=== PATIENT | female | born 1975 | race Caucasian/White ===

== ENCOUNTER 2016-03-26 19:47 | Inpatient (IN) | payer OTHER ==
[~2016-03-26] VITALS: Ht 180.3 cm; Wt 166.4 kg
[~2016-03-26 19:47] MED LIST: ALDACTONE25 MG PO; AMITRIPTYLINE150 MG PO; ATORVASTATIN CA80 MG PO; BENADRYL50 MG PO; BENTYL10 MG PO; BUMEX2 MG PO; CENTRUM COMPLE1 EACH PO; CIPRO500 MG PO; Colchicine,Colcrys PO; DEMADEX100 MG PO; DEMADEX20 MG PO; DILAUDID8 MG PO; DOCUSATE SODIU100 MG PO; DOXYCYCLINE HY100 M3 PO; FLEXERIL10 MG PO; FURO100I IV; GABAPENTIN800 MG PO; HUMULIN R500 UNITS/ SC; HUMULIN R500 UNITS/ SQ; INSPRA50 MG PO; K-DUR20 MEQ PO; K-SOL40 MEQ/15 PO; KLOR-CON M2020 MEQ PO; LANTUS 3 M100 UNITS1 SC; LASIX100 MG/10 ML IV; MAGNESIUM400 M1 PO; METFORMIN HCL500 MG PO; METOLAZONE2.5 MG PO; METOLAZONE5 MG PO; NAPROXEN500 MG PO; NOVOLOG 10100 UNITS/ SC; NOVOLOG PE100 UNITS/ SC; NYSTATIN15 GM TP; OXYCONTIN60 MG PO; OXYCONTIN80 MG PO; PERCOCET 5/31 TABLET PO; PROTONIX20 MG PO; PROTONIX40 MG PO; REGLAN10 MG PO; REQUIP1 MG PO; TORSEMIDE100 MG PO; TRAZODONE HCL50 MG PO; TYLENOL EXTRA500 MG PO; TYLENOL REGULA325 MG PO; WELLBUTRIN XL300 MG PO; ZOFRAN8 MG PO
[2016-03-26 22:24] LABS: BASE EXCESS 35.1 mEq/L (-3 to +3); BICARBONATE 62.4 mEq/L (22-26); CARBOXY HGB 3.1 % (0-5); PO2 77 mm Hg (80-100)
[2016-03-26 22:25] LABS: COMMENTS - BLOOD GASES C+; O2 FLOW 4 L/MIN; PCO2 65 mm Hg (35-45); SITE LR; TOTAL RESP RATE 25 resp/min; pH 7.59 (7.35-7.45)
[2016-03-27 00:12] LABS: HEMATOCRIT 37.2 % (36.0-46.0); MCH 27.1 PG (29.0-34.0); MCHC 32.5 G/DL (30.0-36.0); MCV 83.2 FL (83-99); MEAN PLAT.VOLUME 9.1 uM^3 (9.5-12.4); RBC DIS.WIDTH-CV 16.5 % (11.8-14.6); RBC DIS.WIDTH-SD 49.4 % (39-53); RED BLOOD COUNT 4.47 M/uL (3.80-5.20)
[2016-03-27 00:16] LABS: PLATELET COUNT 367 K/uL (156-360); WHITE BLOOD COUNT 10.8 K/uL (4.1-10.2)
[2016-03-27 00:27] LABS: CHLORIDE 67 mEq/L (99-109); SODIUM 130 mEq/L (136-147)
[2016-03-27 00:30] LABS: GLUCOSE 74 mg/dL (70-99)
[2016-03-27 00:32] LABS: TOTAL BILIRUBIN 0.4 mg/dL (0.0-1.0)
[2016-03-27 00:33] LABS: ALKALINE PHOSPHATASE 124 IU/L (3-129); GFR ESTIMATE (CALCULATED) > 59 mL/min/
[2016-03-27 00:36] LABS: UREA NITROGEN (BUN) 46 mg/dL (9-23)
[2016-03-27 00:37] LABS: TROP-I INTERPRETATION NEGATIVE; TROPONIN-I < 0.01 ng/mL (0.0-0.30)
[2016-03-27 00:41] LABS: ANION GAP 16 MEQ/L (2-14)
[2016-03-27 00:42] LABS: CARBON DIOXIDE (BICARBONATE) > 46.0 mEq/L (20-31)
[2016-03-27 01:09] LABS: ADD MIUA? YES; BILIRUBIN NEGATIVE; BLOOD SMALL; COLOR YELLOW ((YELLOW)); GLUCOSE (STRIP) 250; KETONES NEGATIVE; LEUKOCYTES LARGE; NITRITE NEGATIVE; PROTEIN (STRIP) 30; SPECIFIC GRAVITY 1.016 (1.000-1.030); UROBILINOGEN 0.2 MG/DL (0.2-1.0)
[2016-03-27] MEDS ORDERED: BENADRYL ALLERG25 MG PO (01:24)
[2016-03-27] MEDS ORDERED: KEFLEX500 MG PO (01:24)
[2016-03-27 01:26] LABS: EOSINOPHIL (%) 1.6 % (0-5); EOSINOPHIL COUNT 0.2 K/uL (0-0.3); HEMATOLOGY COMMENT 1 REV; IMMATURE GRANULOCYTE (%) 0.2 % (0.0-0.7); IMMATURE GRANULOCYTE COUNT 0.2 K/uL; MONOCYTE (%) 10.6 % (3-12); MONOCYTE COUNT 1.1 K/uL (0-0.8); NEUTROPHIL (%) 59.7 % (45-76); NEUTROPHIL COUNT 6.4 K/uL (1.8-6.4); USER ID SLU
[2016-03-27 01:41] LABS: BACTERIA RARE; EPITHELIAL CELLS RARE; MUCUS NONE SEEN; RED BLOOD CELLS 0-5 /HPF (0-5); UCUL ADDED? YES; WHITE BLOOD CELLS TNTC /HPF (0-5)
[2016-03-27 01:42] LABS: CASTS NONE SEEN /LPF; CRYSTALS NONE SEEN
[2016-03-27 06:10] VITALS: BP 118/58
[2016-03-27 09:55] LABS: ANION GAP ND MEQ/L (2-14); CARBON DIOXIDE (BICARBONATE) > 40.0 MEQ/L (20-31); CHLORIDE 73 MEQ/L (99-109); GFR ESTIMATE (CALCULATED) > 59 mL/min/; GLUCOSE 355 mg/dL (70-99); POTASSIUM 3.4 MEQ/L (3.7-5.4); SAMPLE HEMOLYSIS CHECK 0; SAMPLE ICTERIC CHECK 0; SAMPLE LIPEMIA CHECK 0; SODIUM 131 MEQ/L (136-147); UREA NITROGEN (BUN) 36 mg/dL (9-23); URIC ACID 11.3 mg/dL (3.1-9.2)
[2016-03-27 09:56] LABS: MAGNESIUM 2.5 mg/dl (1.3-2.7)
[2016-03-27 09:59] LABS: TROP-I INTERPRETATION NEGATIVE; TROPONIN-I < 0.01 ng/mL (0.0-0.30)
[2016-03-27 12:45] VITALS: BP 129/69
[2016-03-27 12:54] LABS: TROP-I INTERPRETATION NEGATIVE; TROPONIN-I < 0.01 ng/mL (0.0-0.30)
[2016-03-27 16:04] VITALS: BP 129/72
[2016-03-27 19:04] LABS: ANION GAP ND MEQ/L (2-14); CHLORIDE 71 MEQ/L (99-109); GFR ESTIMATE (CALCULATED) > 59 mL/min/; GLUCOSE 388 mg/dL (70-99); SAMPLE HEMOLYSIS CHECK 0; SAMPLE ICTERIC CHECK 0; SAMPLE LIPEMIA CHECK 0; SODIUM 125 MEQ/L (136-147); UREA NITROGEN (BUN) 31 mg/dL (9-23)
[2016-03-27 19:08] LABS: CARBON DIOXIDE (BICARBONATE) > 40.0 MEQ/L (20-31)
[2016-03-27 19:48] VITALS: BP 117/51
[2016-03-27 21:08] LABS: HEMATOCRIT 34.2 % (36.0-46.0); MCH 27.3 PG (29.0-34.0); MCHC 31.6 G/DL (30.0-36.0); MCV 86.6 FL (83-99); MEAN PLAT.VOLUME 9.7 uM^3 (9.5-12.4); PLATELET COUNT 313 K/uL (156-360); RBC DIS.WIDTH-SD 53.4 % (39-53); RED BLOOD COUNT 3.95 M/uL (3.80-5.20); WHITE BLOOD COUNT 9.2 K/uL (4.1-10.2)
[2016-03-27 21:12] LABS: ANION GAP ND MEQ/L (2-14); CHLORIDE 76 MEQ/L (99-109); GFR ESTIMATE (CALCULATED) > 59 mL/min/; GLUCOSE 333 mg/dL (70-99); POTASSIUM 3.1 MEQ/L (3.7-5.4); SAMPLE HEMOLYSIS CHECK 0; SAMPLE ICTERIC CHECK 0; SAMPLE LIPEMIA CHECK 0; SODIUM 127 MEQ/L (136-147); UREA NITROGEN (BUN) 30 mg/dL (9-23)
[2016-03-27 21:13] LABS: CARBON DIOXIDE (BICARBONATE) > 40.0 MEQ/L (20-31); EOSINOPHIL (%) 1.5 % (0-5); EOSINOPHIL COUNT 0.1 K/uL (0-0.3); IMMATURE GRANULOCYTE (%) 0.2 % (0.0-0.7); MONOCYTE (%) 6.8 % (3-12); MONOCYTE COUNT 0.6 K/uL (0-0.8); NEUTROPHIL (%) 69.1 % (45-76); NEUTROPHIL COUNT 6.3 K/uL (1.8-6.4)
[2016-03-27 21:53] LABS: GLUCOSE 321 mg/dL (70-99)
[2016-03-27 23:18] VITALS: BP 120/55
[2016-03-28 03:09] VITALS: BP 140/58
[2016-03-28 04:41] LABS: HEMATOCRIT 36.4 % (36.0-46.0); MCH 27.4 PG (29.0-34.0); MCHC 32.4 G/DL (30.0-36.0); MCV 84.7 FL (83-99); MEAN PLAT.VOLUME 9.1 uM^3 (9.5-12.4); PLATELET COUNT 321 K/uL (156-360); RBC DIS.WIDTH-SD 51.5 % (39-53); WHITE BLOOD COUNT 7.8 K/uL (4.1-10.2)
[2016-03-28 04:44] LABS: EOSINOPHIL (%) 2.6 % (0-5); EOSINOPHIL COUNT 0.2 K/uL (0-0.3); IMMATURE GRANULOCYTE (%) 0.3 % (0.0-0.7); IMMATURE GRANULOCYTE COUNT 0.2 K/uL; LYMPHOCYTE COUNT 2.2 K/uL (1.0-2.8); MONOCYTE (%) 9.6 % (3-12); MONOCYTE COUNT 0.8 K/uL (0-0.8); NEUTROPHIL (%) 59.1 % (45-76); NEUTROPHIL COUNT 4.6 K/uL (1.8-6.4)
[2016-03-28 04:52] LABS: POTASSIUM 2.7 mEq/L (3.7-5.4); SODIUM 132 mEq/L (136-147)
[2016-03-28 04:53] LABS: GLUCOSE 267 mg/dL (70-99)
[2016-03-28 04:55] LABS: ANION GAP 11 MEQ/L (2-14)
[2016-03-28 04:57] LABS: GFR ESTIMATE (CALCULATED) > 59 mL/min/
[2016-03-28 04:58] LABS: CHLORIDE 77 mEq/L (99-109); UREA NITROGEN (BUN) 25 mg/dL (9-23)
[2016-03-28 04:59] LABS: CARBON DIOXIDE (BICARBONATE) > 40.0 mEq/L (20-31)
[2016-03-28 08:00] VITALS: BP 128/62
[2016-03-28 08:06] LABS: POINT-OF-CARE METER ID UU13113781
[2016-03-28 11:42] LABS: POINT-OF-CARE METER ID UU13113781
[2016-03-28 12:01] VITALS: BP 129/60
[2016-03-28 15:16] LABS: ANION GAP ND MEQ/L (2-14); CHLORIDE 82 MEQ/L (99-109); GFR ESTIMATE (CALCULATED) > 59 mL/min/; GLUCOSE 290 mg/dL (70-99); SAMPLE HEMOLYSIS CHECK 0; SAMPLE ICTERIC CHECK 0; SAMPLE LIPEMIA CHECK 0; SODIUM 131 MEQ/L (136-147); UREA NITROGEN (BUN) 19 mg/dL (9-23)
[2016-03-28 15:17] LABS: CARBON DIOXIDE (BICARBONATE) > 40.0 MEQ/L (20-31); POTASSIUM 3.3 MEQ/L (3.7-5.4)
[2016-03-28 16:02] VITALS: BP 128/59
[2016-03-28 19:43] VITALS: BP 121/56
[2016-03-28 23:55] VITALS: BP 134/70
[2016-03-29 03:17] VITALS: BP 111/89; BP 113/54
[2016-03-29 04:25] LABS: HEMATOCRIT 35.8 % (36.0-46.0); MCH 27.5 PG (29.0-34.0); MCHC 31.8 G/DL (30.0-36.0); MCV 86.3 FL (83-99); MEAN PLAT.VOLUME 8.5 uM^3 (9.5-12.4); PLATELET COUNT 306 K/uL (156-360); RBC DIS.WIDTH-SD 52.3 % (39-53); RED BLOOD COUNT 4.15 M/uL (3.80-5.20); WHITE BLOOD COUNT 7.7 K/uL (4.1-10.2)
[2016-03-29 04:31] LABS: EOSINOPHIL COUNT 0.2 K/uL (0-0.3); IMMATURE GRANULOCYTE (%) 0.3 % (0.0-0.7); IMMATURE GRANULOCYTE COUNT 0.2 K/uL; LYMPHOCYTE COUNT 2.1 K/uL (1.0-2.8); MONOCYTE (%) 9.6 % (3-12); MONOCYTE COUNT 0.7 K/uL (0-0.8); NEUTROPHIL (%) 59.3 % (45-76); NEUTROPHIL COUNT 4.6 K/uL (1.8-6.4)
[2016-03-29 04:38] LABS: CHLORIDE 88 mEq/L (99-109); SODIUM 138 mEq/L (136-147)
[2016-03-29 04:40] LABS: ANION GAP 10 MEQ/L (2-14)
[2016-03-29 04:42] LABS: GFR ESTIMATE (CALCULATED) > 59 mL/min/
[2016-03-29 04:43] LABS: UREA NITROGEN (BUN) 16 mg/dL (9-23)
[2016-03-29 04:44] LABS: GLUCOSE 79 mg/dL (70-99)
[2016-03-29 08:00] VITALS: BP 126/57
[2016-03-29 08:01] LABS: POINT-OF-CARE METER ID UU14174216
[2016-03-29 11:25] VITALS: BP 138/79
[2016-03-29 12:05] LABS: POINT-OF-CARE METER ID UU14174216
[2016-03-29 12:25] LABS: ANION GAP 7 MEQ/L (2-14); CHLORIDE 88 MEQ/L (99-109); GFR ESTIMATE (CALCULATED) > 59 mL/min/; SAMPLE HEMOLYSIS CHECK 0; SAMPLE ICTERIC CHECK 0; SAMPLE LIPEMIA CHECK 0; SODIUM 134 MEQ/L (136-147); UREA NITROGEN (BUN) 14 mg/dL (9-23)
[2016-03-29 12:26] LABS: GLUCOSE 232 mg/dL (70-99); POTASSIUM 3.9 MEQ/L (3.7-5.4)
== END 2016-03-29 15:39 | disposition home health service (06) | DRG 71 ==
LOC: EME 19:47 → 4EAST 03-27 04:45 → EDOF 03-27 04:45 → 4EAST 03-27 05:50
PROVIDERS: Emergency Medicine; Hospitalist; Internal Medicine; Internal Medicine Nephrology
DX: G93.41 Metabolic encephalopathy (principal); E87.3 Alkalosis; E87.8 Other disorders of electrolyte and fluid balance, not elsewhere classified; E66.2 Morbid (severe) obesity with alveolar hypoventilation; Y92.031 Bathroom in apartment as the place of occurrence of the external cause; W18.11XA Fall from or off toilet without subsequent striking against object, initial encounter; Z68.43 Body mass index [BMI] 50.0-59.9, adult; E87.2 Acidosis; E87.1 Hypo-osmolality and hyponatremia; E87.6 Hypokalemia; I27.2 Other secondary pulmonary hypertension; I95.9 Hypotension, unspecified; K21.9 Gastro-esophageal reflux disease without esophagitis; F32.9 Major depressive disorder, single episode, unspecified; M21.332 Wrist drop, left wrist; R53.82 Chronic fatigue, unspecified; G56.32 Lesion of radial nerve, left upper limb; H21.9 Unspecified disorder of iris and ciliary body; E11.40 Type 2 diabetes mellitus with diabetic neuropathy, unspecified; G25.81 Restless legs syndrome; F43.10 Post-traumatic stress disorder, unspecified; I50.32 Chronic diastolic (congestive) heart failure; E86.0 Dehydration; Z91.19 Patient's noncompliance with other medical treatment and regimen; Z99.81 Dependence on supplemental oxygen
CPT/HCPCS: 36600; 70450; 71010; 73110; 80048; 80048 91; 80053; 80069; 81003; 82803; 82948; 83605; 83735; 83880; 83935; 84300; 84484; 84550; 84999; 85025; 85025 91; 87086; 93005; 94799; 95819; 99281; 99285; J0696; J1200; J1815; J3475; J3480; J7030; J7050

== ENCOUNTER 2016-06-25 22:06 | Inpatient (IN) | payer OTHER ==
[~2016-06-25] VITALS: Ht 175.3 cm; Wt 186.3 kg
[~2016-06-25 22:06] MED LIST changes: +BENADRYL ALLERG25 MG PO; +KEFLEX500 MG PO
[2016-06-25 23:23] LABS: HEMATOCRIT 33.6 % (36.0-46.0); MCH 25.1 PG (29.0-34.0); MEAN PLAT.VOLUME 8.6 uM^3 (9.5-12.4); PLATELET COUNT 415 K/uL (156-360); RBC DIS.WIDTH-CV 17.1 % (11.8-14.6); RBC DIS.WIDTH-SD 49.2 % (39-53); RED BLOOD COUNT 4.15 M/uL (3.80-5.20)
[2016-06-25 23:31] LABS: WHITE BLOOD COUNT 22.5 K/uL (4.1-10.2)
[2016-06-25 23:40] LABS: CHLORIDE 88 mEq/L (99-109); POTASSIUM 3.4 mEq/L (3.7-5.4)
[2016-06-25 23:42] LABS: GLUCOSE 203 mg/dL (70-99)
[2016-06-25 23:43] LABS: ANION GAP 12 MEQ/L (2-14)
[2016-06-25 23:46] LABS: GFR ESTIMATE (CALCULATED) > 59 mL/min/; UREA NITROGEN (BUN) 13 mg/dL (9-23)
[2016-06-25 23:49] LABS: SODIUM 131 mEq/L (136-147)
[2016-06-26 00:07] LABS: ABS NEUTROPHIL COUNT 20.4; ANISOCYTOSIS 1+; ATYPICAL LYMPHOCYTE 0.9 %; BAND NEUTROPHILS 0.4 % (0-8.0); BASOPHILS 0.4 %; EOSINOPHIL ABS CT 0; HYPOCHROMASIA 1+; INSTRUMENT ABS NEUTROPHIL CT 20.2 K/uL; MICROCYTOSIS 1+; PLAT.SUFFICIENCY INCREASED; POLYCHROMASIA 1+; SEG.NEUTROPHILS 90.4 % (46.0-76.0)
[2016-06-26 05:39] LABS: ADD MIUA? YES; BILIRUBIN NEGATIVE; BLOOD NEGATIVE; COLOR YELLOW ((YELLOW)); GLUCOSE (STRIP) 50; KETONES NEGATIVE; LEUKOCYTES SMALL; NITRITE NEGATIVE; PROTEIN (STRIP) NEGATIVE; SPECIFIC GRAVITY 1.016 (1.000-1.030); UROBILINOGEN 0.2 MG/DL (0.2-1.0)
[2016-06-26 06:11] LABS: BACTERIA NONE SEEN /HPF; EPITHELIAL CELLS RARE /HPF; MUCUS TRACE /LPF; RED BLOOD CELLS 0-5 /HPF (0-5); UCUL ADDED? NO; WHITE BLOOD CELLS 30-40 /HPF (0-5)
[2016-06-26 07:35] VITALS: BP 125/57
[2016-06-26 07:41] VITALS: BP 125/57
[2016-06-26 08:26] LABS: POINT-OF-CARE METER ID UU13113807
[2016-06-26 09:35] LABS: EOSINOPHIL (%) 0.7 % (0-5); EOSINOPHIL COUNT 0.1 K/uL (0-0.3); HEMATOCRIT 31.2 % (36.0-46.0); IMMATURE GRANULOCYTE (%) 0.6 % (0.0-0.7); IMMATURE GRANULOCYTE COUNT 0.1 K/uL; INSTRUMENT ABS NEUTROPHIL CT 11.1 K/uL; LYMPHOCYTE COUNT 2.1 K/uL (1.0-2.8); MCH 25.1 PG (29.0-34.0); MCHC 30.8 G/DL (30.0-36.0); MCV 81.5 FL (83-99); MEAN PLAT.VOLUME 8.6 uM^3 (9.5-12.4); MONOCYTE (%) 5.9 % (3-12); MONOCYTE COUNT 0.8 K/uL (0-0.8); NEUTROPHIL (%) 77.8 % (45-76); NEUTROPHIL COUNT 11.1 K/uL (1.8-6.4); PLATELET COUNT 363 K/uL (156-360); RBC DIS.WIDTH-CV 17.2 % (11.8-14.6); RED BLOOD COUNT 3.83 M/uL (3.80-5.20)
[2016-06-26 09:38] LABS: WHITE BLOOD COUNT 14.3 K/uL (4.1-10.2)
[2016-06-26 10:01] LABS: ANION GAP 11 MEQ/L (2-14); CHLORIDE 86 MEQ/L (99-109); GFR ESTIMATE (CALCULATED) > 59 mL/min/; GLUCOSE 156 mg/dL (70-99); POTASSIUM 3.4 MEQ/L (3.7-5.4); SAMPLE HEMOLYSIS CHECK 0; SAMPLE ICTERIC CHECK 0; SAMPLE LIPEMIA CHECK 0; SODIUM 131 MEQ/L (136-147); UREA NITROGEN (BUN) 14 mg/dL (9-23)
[2016-06-26] MEDS ORDERED: TORSEMIDE100 MG PO (12:16)
[2016-06-26] MEDS ORDERED: DOCUSATE SODIU100 MG PO (12:16)
[2016-06-26] MEDS ORDERED: DOXYCYCLINE HY100 MG PO (12:17)
[2016-06-26] MEDS ORDERED: TERBINAFINE HC250 MG PO (12:17)
[2016-06-26 13:01] LABS: POINT-OF-CARE METER ID UU13113807
[2016-06-26] MEDS ORDERED: FURO100I IV (13:50)
[2016-06-26 15:30] VITALS: BP 131/74
[2016-06-26 17:13] LABS: POINT-OF-CARE METER ID UU13113807
[2016-06-26 20:32] VITALS: BP 122/66
[2016-06-26 22:00] LABS: POINT-OF-CARE METER ID UU13113807
[2016-06-27 00:08] VITALS: BP 142/73
[2016-06-27 06:02] VITALS: BP 134/68
[2016-06-27 06:54] LABS: ANION GAP 9 MEQ/L (2-14); CHLORIDE 91 MEQ/L (99-109); GFR ESTIMATE (CALCULATED) > 59 mL/min/; GLUCOSE 124 mg/dL (70-99); POTASSIUM 3.3 MEQ/L (3.7-5.4); SAMPLE HEMOLYSIS CHECK 0; SAMPLE ICTERIC CHECK 0; SAMPLE LIPEMIA CHECK 0; SODIUM 137 MEQ/L (136-147); UREA NITROGEN (BUN) 11 mg/dL (9-23)
[2016-06-27 06:57] LABS: HEMATOCRIT 30.2 % (36.0-46.0); IMMATURE GRANULOCYTE (%) 0.4 % (0.0-0.7); LYMPHOCYTE COUNT 0.9 K/uL (1.0-2.8); MCH 24.9 PG (29.0-34.0); MCHC 30.1 G/DL (30.0-36.0); MCV 82.7 FL (83-99); MEAN PLAT.VOLUME 8.9 uM^3 (9.5-12.4); MONOCYTE (%) 4.8 % (3-12); MONOCYTE COUNT 0.5 K/uL (0-0.8); NEUTROPHIL (%) 82.5 % (45-76); NEUTROPHIL COUNT 7.7 K/uL (1.8-6.4); PLATELET COUNT 332 K/uL (156-360); RBC DIS.WIDTH-CV 17.2 % (11.8-14.6); RBC DIS.WIDTH-SD 51.3 % (39-53); RED BLOOD COUNT 3.65 M/uL (3.80-5.20)
[2016-06-27 06:58] LABS: EOSINOPHIL COUNT 0.2 K/uL (0-0.3); INSTRUMENT ABS NEUTROPHIL CT 7.7 K/uL
[2016-06-27 07:17] LABS: WHITE BLOOD COUNT 9.4 K/uL (4.1-10.2)
[2016-06-27 08:00] VITALS: BP 144/75
[2016-06-27 08:03] LABS: POINT-OF-CARE METER ID UU14149398
[2016-06-27 12:00] VITALS: BP 115/71
[2016-06-27 12:49] LABS: POINT-OF-CARE METER ID UU14149398
[2016-06-27 15:45] VITALS: BP 144/70
[2016-06-27 17:11] LABS: POINT-OF-CARE METER ID UU14149398
[2016-06-27 21:33] LABS: POINT-OF-CARE METER ID UU14149398
[2016-06-28 00:04] VITALS: BP 128/57
[2016-06-28 05:55] LABS: EOSINOPHIL (%) 2.8 % (0-5); EOSINOPHIL COUNT 0.3 K/uL (0-0.3); HEMATOCRIT 30.9 % (36.0-46.0); IMMATURE GRANULOCYTE (%) 0.5 % (0.0-0.7); INSTRUMENT ABS NEUTROPHIL CT 6.7 K/uL; LYMPHOCYTE COUNT 1.4 K/uL (1.0-2.8); MCH 24.9 PG (29.0-34.0); MCHC 29.8 G/DL (30.0-36.0); MCV 83.7 FL (83-99); MEAN PLAT.VOLUME 8.8 uM^3 (9.5-12.4); MONOCYTE (%) 5.3 % (3-12); MONOCYTE COUNT 0.5 K/uL (0-0.8); NEUTROPHIL (%) 75.9 % (45-76); NEUTROPHIL COUNT 6.7 K/uL (1.8-6.4); PLATELET COUNT 331 K/uL (156-360); RBC DIS.WIDTH-SD 52.1 % (39-53); RED BLOOD COUNT 3.69 M/uL (3.80-5.20); WHITE BLOOD COUNT 8.8 K/uL (4.1-10.2)
[2016-06-28 06:16] LABS: ANION GAP 7 MEQ/L (2-14); CHLORIDE 93 MEQ/L (99-109); GFR ESTIMATE (CALCULATED) > 59 mL/min/; GLUCOSE 141 mg/dL (70-99); POTASSIUM 3.5 MEQ/L (3.7-5.4); SAMPLE HEMOLYSIS CHECK 0; SAMPLE ICTERIC CHECK 0; SAMPLE LIPEMIA CHECK 0; SODIUM 138 MEQ/L (136-147); UREA NITROGEN (BUN) 12 mg/dL (9-23)
[2016-06-28 08:40] VITALS: BP 130/701
[2016-06-28 08:51] LABS: POINT-OF-CARE METER ID UU13113807
[2016-06-28 12:22] LABS: POINT-OF-CARE METER ID UU13113807
[2016-06-28 15:39] VITALS: BP 145/79
[2016-06-28 17:20] LABS: POINT-OF-CARE METER ID UU13113807
[2016-06-28 21:55] LABS: POINT-OF-CARE METER ID UU13113807
[2016-06-29] VITALS: BP 108/62
[2016-06-29 06:52] LABS: ANION GAP 6 MEQ/L (2-14); CHLORIDE 96 MEQ/L (99-109); GFR ESTIMATE (CALCULATED) > 59 mL/min/; POTASSIUM 3.9 MEQ/L (3.7-5.4); SAMPLE HEMOLYSIS CHECK 0; SAMPLE ICTERIC CHECK 0; SAMPLE LIPEMIA CHECK 0; SODIUM 140 MEQ/L (136-147); UREA NITROGEN (BUN) 12 mg/dL (9-23)
[2016-06-29 07:30] LABS: EOSINOPHIL (%) 3.3 % (0-5); EOSINOPHIL COUNT 0.3 K/uL (0-0.3); HEMATOCRIT 32.1 % (36.0-46.0); IMMATURE GRANULOCYTE (%) 0.4 % (0.0-0.7); LYMPHOCYTE COUNT 1.3 K/uL (1.0-2.8); MCH 24.9 PG (29.0-34.0); MCHC 29.3 G/DL (30.0-36.0); MCV 84.9 FL (83-99); MEAN PLAT.VOLUME 9.1 uM^3 (9.5-12.4); MONOCYTE (%) 6.9 % (3-12); MONOCYTE COUNT 0.6 K/uL (0-0.8); NEUTROPHIL (%) 72.7 % (45-76); PLATELET COUNT 368 K/uL (156-360); RBC DIS.WIDTH-SD 52.1 % (39-53); RED BLOOD COUNT 3.78 M/uL (3.80-5.20); WHITE BLOOD COUNT 8.2 K/uL (4.1-10.2)
[2016-06-29 08:12] LABS: GLUCOSE 75 mg/dL (70-99)
[2016-06-29 08:15] VITALS: BP 142/71
[2016-06-29 08:32] LABS: POINT-OF-CARE METER ID UU13113698
[2016-06-29 10:15] VITALS: BP 142/71
[2016-06-29 11:37] LABS: POINT-OF-CARE METER ID UU13113698
[2016-06-29] MEDS ORDERED: DOCUSATE SODIU100 MG PO (16:44)
[2016-06-29] MEDS ORDERED: TERBINAFINE HC250 MG PO (16:44)
[2016-06-29] MEDS ORDERED: SENNA-DOCUSATE1 EAC1 PO (16:46)
[2016-06-29 17:42] LABS: POINT-OF-CARE METER ID UU13113698
== END 2016-06-29 19:41 | disposition home health service (06) | DRG 602 ==
LOC: EME 22:06 → EDOF 06-26 01:52 → 4SOUTH 06-26 01:52
PROVIDERS: Internal Medicine; Student in an Organized Health Care Education/Training Program
DX: L03.311 Cellulitis of abdominal wall (principal); G93.41 Metabolic encephalopathy; E87.3 Alkalosis; J96.11 Chronic respiratory failure with hypoxia; I50.30 Unspecified diastolic (congestive) heart failure; Z68.44 Body mass index [BMI] 60.0-69.9, adult; L03.319 Cellulitis of trunk, unspecified; E11.42 Type 2 diabetes mellitus with diabetic polyneuropathy; E66.01 Morbid (severe) obesity due to excess calories; I10 Essential (primary) hypertension; G47.33 Obstructive sleep apnea (adult) (pediatric); D72.829 Elevated white blood cell count, unspecified; B95.62 Methicillin resistant Staphylococcus aureus infection as the cause of diseases classified elsewhere; G25.81 Restless legs syndrome; F43.11 Post-traumatic stress disorder, acute; F12.10 Cannabis abuse, uncomplicated; K59.00 Constipation, unspecified; Z87.440 Personal history of urinary (tract) infections; Z90.49 Acquired absence of other specified parts of digestive tract
CPT/HCPCS: 74176; 80048; 80202; 81003; 82948; 83605; 85025; 85027; 87040; 87070; 87075; 87077; 87147; 87186; 87205; 94799; 99281; 99285; J0690; J0692; J0696; J1170; J1200; J1815; J2270; J3370; J7030; J7050

== ENCOUNTER 2017-04-21 01:00 | Inpatient (IN) | payer OTHER ==
[~2017-04-21] VITALS: Ht 175.3 cm; Wt 195.0 kg
[~2017-04-21 01:00] MED LIST changes: +DOXYCYCLINE HY100 MG PO; +GABAPENTIN400 MG PO; -GABAPENTIN800 MG PO; +LO-DOSE ASPIRIN81 M1 PO; +MEDOLOR PAK 2.1 EACH TP; +SENNA PLUS TAB1 EACH PO; +SENNA-DOCUSATE1 EAC1 PO; +TERBINAFINE HC250 MG PO; +WELLBUTRIN XL150 MG PO; -WELLBUTRIN XL300 MG PO
[2017-04-21 02:10] LABS: HEMATOCRIT 36.9 % (36.0-46.0); HEMOGLOBIN 11.8 G/DL (11.9-15.5); MCH 26.9 PG (29.0-34.0); MCV 84.2 FL (83-99); PLATELET COUNT 348 K/uL (156-360); RBC DIS.WIDTH-CV 16.4 % (11.8-14.6); RBC DIS.WIDTH-SD 49.3 % (39-53); RED BLOOD COUNT 4.38 M/uL (3.80-5.20); WHITE BLOOD COUNT 9.6 K/uL (4.1-10.2)
[2017-04-21 02:22] LABS: ALBUMIN 3.5 g/dL (3.2-4.8); CHLORIDE 91 mEq/L (99-109); POTASSIUM 3.8 mEq/L (3.7-5.4); SODIUM 132 mEq/L (136-147)
[2017-04-21 02:25] LABS: TOTAL PROTEIN 7.3 g/dL (6.4-8.3)
[2017-04-21 02:26] LABS: GLUCOSE 415 mg/dL (70-99)
[2017-04-21 02:27] LABS: TOTAL BILIRUBIN 0.6 mg/dL (0.0-1.0)
[2017-04-21 02:28] LABS: ALKALINE PHOSPHATASE 135 IU/L (3-129); CREATININE 0.8 mg/dL (0.6-1.3); GFR ESTIMATE (CALCULATED) > 59 mL/min/
[2017-04-21 02:29] LABS: UREA NITROGEN (BUN) 13 mg/dL (9-23)
[2017-04-21 02:30] LABS: AST (GOT) 18 IU/L (2-34)
[2017-04-21 02:31] LABS: ALT (GPT) 26 IU/L (3-49)
[2017-04-21 02:38] LABS: QUANTITATIVE HCG < 4.0 MIU/ML
[2017-04-21 03:10] LABS: APPEARANCE CLEAR ((CLEAR)); BILIRUBIN NEGATIVE; BLOOD SMALL; COLOR YELLOW ((YELLOW)); GLUCOSE (STRIP) >=500; KETONES 5; LEUKOCYTES SMALL; NITRITE NEGATIVE; PROTEIN (STRIP) NEGATIVE; SPECIFIC GRAVITY 1.026 (1.000-1.030); UROBILINOGEN 0.2 MG/DL (0.2-1.0)
[2017-04-21 03:24] LABS: BACTERIA RARE /HPF; EPITHELIAL CELLS RARE /HPF; MUCUS NONE SEEN /LPF; RED BLOOD CELLS 0-5 /HPF (0-5); UCUL ADDED? YES; WHITE BLOOD CELLS 30-40 /HPF (0-5)
[2017-04-21 06:06] LABS: CARBON DIOXIDE (BICARBONATE) 36.4 MEQ/L (20-31)
[2017-04-21 08:45] VITALS: BP 124/58
[2017-04-21 12:00] VITALS: BP 136/75
[2017-04-21] MEDS ORDERED: NOVOLOG 10100 UNITS/ SC (13:22)
[2017-04-21 16:00] VITALS: BP 140/85
[2017-04-21 21:05] VITALS: BP 135/69
[2017-04-21 23:38] VITALS: BP 100/50
[2017-04-22 03:31] VITALS: BP 146/83
[2017-04-22 06:45] LABS: BASOPHIL (%) 0.4 % (0-1); EOSINOPHIL (%) 3.3 % (0-5); EOSINOPHIL COUNT 0.3 K/uL (0-0.3); HEMATOCRIT 35.6 % (36.0-46.0); IMMATURE GRANULOCYTE (%) 0.9 % (0.0-0.7); LYMPHOCYTE (%) 9.4 % (15-42); LYMPHOCYTE COUNT 0.9 K/uL (1.0-2.8); MCH 26.6 PG (29.0-34.0); MCHC 30.9 G/DL (30.0-36.0); MONOCYTE (%) 5.8 % (3-12); MONOCYTE COUNT 0.5 K/uL (0-0.8); NEUTROPHIL (%) 80.2 % (45-76); NEUTROPHIL COUNT 7.3 K/uL (1.8-6.4); PLATELET COUNT 292 K/uL (156-360); RBC DIS.WIDTH-CV 16.6 % (11.8-14.6); RBC DIS.WIDTH-SD 51.8 % (39-53); RED BLOOD COUNT 4.14 M/uL (3.80-5.20); WHITE BLOOD COUNT 9.1 K/uL (4.1-10.2)
[2017-04-22 07:18] LABS: CHLORIDE 96 MEQ/L (99-109); CREATININE 0.5 MG/DL (0.6-1.3); GFR ESTIMATE (CALCULATED) > 59 mL/min/; GLUCOSE 231 mg/dL (70-99); POTASSIUM 3.9 MEQ/L (3.7-5.4); SODIUM 136 MEQ/L (136-147); UREA NITROGEN (BUN) 13 mg/dL (9-23)
[2017-04-22 11:46] VITALS: BP 157/78
[2017-04-22 16:22] VITALS: BP 138/62
[2017-04-22 19:27] VITALS: BP 123/58
[2017-04-22 20:09] VITALS: BP 113/52
[2017-04-23 00:21] VITALS: BP 105/55
[2017-04-23 04:24] VITALS: BP 134/75
[2017-04-23 06:05] LABS: HEMATOCRIT 36.6 % (36.0-46.0); HEMOGLOBIN 11.2 G/DL (11.9-15.5); MCH 26.5 PG (29.0-34.0); MCHC 30.6 G/DL (30.0-36.0); MCV 86.5 FL (83-99); PLATELET COUNT 302 K/uL (156-360); RBC DIS.WIDTH-CV 16.7 % (11.8-14.6); RBC DIS.WIDTH-SD 52.7 % (39-53); RED BLOOD COUNT 4.23 M/uL (3.80-5.20); WHITE BLOOD COUNT 10.2 K/uL (4.1-10.2)
[2017-04-23 06:32] LABS: CHLORIDE 100 MEQ/L (99-109); CREATININE 0.5 MG/DL (0.6-1.3); GFR ESTIMATE (CALCULATED) > 59 mL/min/; GLUCOSE 167 mg/dL (70-99); SODIUM 138 MEQ/L (136-147); UREA NITROGEN (BUN) 10 mg/dL (9-23)
[2017-04-23 09:04] VITALS: BP 138/80
[2017-04-23 11:33] VITALS: BP 131/62
[2017-04-23 15:34] VITALS: BP 91/54
[2017-04-24 01:04] VITALS: BP 110/58
[2017-04-24 07:50] VITALS: BP 135/75
[2017-04-24 16:20] VITALS: BP 131/72
[2017-04-24 23:44] VITALS: BP 142/83
[2017-04-25 07:52] VITALS: BP 142/71
[2017-04-25 08:02] LABS: BASOPHIL (%) 0.5 % (0-1); BASOPHIL COUNT 0.1 K/uL (0-0.1); EOSINOPHIL (%) 4.5 % (0-5); EOSINOPHIL COUNT 0.4 K/uL (0-0.3); HEMATOCRIT 34.9 % (36.0-46.0); HEMOGLOBIN 10.6 G/DL (11.9-15.5); IMMATURE GRANULOCYTE (%) 0.3 % (0.0-0.7); LYMPHOCYTE (%) 16.7 % (15-42); LYMPHOCYTE COUNT 1.6 K/uL (1.0-2.8); MCHC 30.4 G/DL (30.0-36.0); MCV 85.5 FL (83-99); MONOCYTE (%) 8.5 % (3-12); MONOCYTE COUNT 0.8 K/uL (0-0.8); NEUTROPHIL (%) 69.5 % (45-76); NEUTROPHIL COUNT 6.7 K/uL (1.8-6.4); PLATELET COUNT 300 K/uL (156-360); RBC DIS.WIDTH-CV 16.6 % (11.8-14.6); RBC DIS.WIDTH-SD 51.1 % (39-53); RED BLOOD COUNT 4.08 M/uL (3.80-5.20); WHITE BLOOD COUNT 9.7 K/uL (4.1-10.2)
[2017-04-25 08:34] LABS: C-REACTIVE PROTEIN 48.6 MG/L (0-10); CHLORIDE 94 MEQ/L (99-109); CREATININE 0.6 MG/DL (0.6-1.3); GFR ESTIMATE (CALCULATED) > 59 mL/min/; GLUCOSE 172 mg/dL (70-99); POTASSIUM 3.7 MEQ/L (3.7-5.4); SODIUM 140 MEQ/L (136-147); UREA NITROGEN (BUN) 14 mg/dL (9-23)
[2017-04-25 15:33] VITALS: BP 138/67
[2017-04-26 01:01] VITALS: BP 108/49
[2017-04-26 07:32] VITALS: BP 141/70
[2017-04-26 11:35] VITALS: BP 134/72
[2017-04-26] MEDS ORDERED: BACTRIM,SEPT1 TABLET PO (14:27)
[2017-04-26] MEDS ORDERED: CEPHALEXIN500 MG PO (14:27)
== END 2017-04-26 15:52 | disposition home health service (06) | DRG 602 ==
LOC: EME 01:00 → EDOF 06:44 → 2EAST 06:44 → ENRESERV 06:59 → CANRESERV 06:59 → EDOF 07:22 → ENRESERV 07:25 → 2EAST 08:55
PROVIDERS: Family Medicine; Hospitalist; Internal Medicine; Nurse Practitioner Family
DX: L03.311 Cellulitis of abdominal wall (principal); J96.21 Acute and chronic respiratory failure with hypoxia; J96.22 Acute and chronic respiratory failure with hypercapnia; E11.10 Type 2 diabetes mellitus with ketoacidosis without coma; I50.32 Chronic diastolic (congestive) heart failure; Z68.44 Body mass index [BMI] 60.0-69.9, adult; E87.4 Mixed disorder of acid-base balance; F33.9 Major depressive disorder, recurrent, unspecified; L02.211 Cutaneous abscess of abdominal wall; E66.01 Morbid (severe) obesity due to excess calories; G89.4 Chronic pain syndrome; G47.33 Obstructive sleep apnea (adult) (pediatric); I27.20 Pulmonary hypertension, unspecified; K21.9 Gastro-esophageal reflux disease without esophagitis; G25.81 Restless legs syndrome; G43.909 Migraine, unspecified, not intractable, without status migrainosus; I11.0 Hypertensive heart disease with heart failure; M79.7 Fibromyalgia; N20.0 Calculus of kidney; B95.62 Methicillin resistant Staphylococcus aureus infection as the cause of diseases classified elsewhere; E78.5 Hyperlipidemia, unspecified; M79.3 Panniculitis, unspecified; F64.8 Other gender identity disorders; D64.9 Anemia, unspecified; F41.9 Anxiety disorder, unspecified; E65 Localized adiposity; L89.899 Pressure ulcer of other site, unspecified stage; Z79.4 Long term (current) use of insulin; Z79.82 Long term (current) use of aspirin; Z74.01 Bed confinement status; Z86.14 Personal history of Methicillin resistant Staphylococcus aureus infection; Z87.891 Personal history of nicotine dependence; Z91.120 Patient's intentional underdosing of medication regimen due to financial hardship; Z88.0 Allergy status to penicillin; Z88.1 Allergy status to other antibiotic agents; Z88.6 Allergy status to analgesic agent; Z91.040 Latex allergy status; Z91.19 Patient's noncompliance with other medical treatment and regimen; Z82.49 Family history of ischemic heart disease and other diseases of the circulatory system; Z82.5 Family history of asthma and other chronic lower respiratory diseases
CPT/HCPCS: 74177; 80048; 80048 91; 80053; 80202; 81003; 82010; 82803; 82948; 83605; 84702; 85025; 85027; 86140; 87086; 87641; 93306; 94799; 99281; 99285; J0696; J1170; J1650; J1815; J1940; J2405; J3010; J3370; J7030; J7040; J7050

== ENCOUNTER 2017-07-30 23:06 | Emergency (ER) | payer OTHER ==
[~2017-07-30] VITALS: Ht 175.3 cm; Wt 186.3 kg
[~2017-07-30 23:06] MED LIST changes: +BACTRIM,SEPT1 TABLET PO; +CEPHALEXIN500 MG PO
[2017-07-31 03:40] LABS: BASOPHIL (%) 0.3 % (0-1); CARBON DIOXIDE (BICARBONATE) > 40.0 MEQ/L (20-31); EOSINOPHIL (%) 1.9 % (0-5); EOSINOPHIL COUNT 0.2 K/uL (0-0.3); HEMATOCRIT 34.4 % (36.0-46.0); HEMOGLOBIN 10.5 G/DL (11.9-15.5); IMMATURE GRANULOCYTE (%) 0.4 % (0.0-0.7); LYMPHOCYTE (%) 19.3 % (15-42); LYMPHOCYTE COUNT 2.3 K/uL (1.0-2.8); MCH 25.2 PG (29.0-34.0); MCHC 30.5 G/DL (30.0-36.0); MCV 82.7 FL (83-99); MONOCYTE (%) 5.4 % (3-12); MONOCYTE COUNT 0.6 K/uL (0-0.8); NEUTROPHIL (%) 72.7 % (45-76); NEUTROPHIL COUNT 8.7 K/uL (1.8-6.4); PLATELET COUNT 368 K/uL (156-360); RBC DIS.WIDTH-CV 16.5 % (11.8-14.6); RED BLOOD COUNT 4.16 M/uL (3.80-5.20); VENOUS PCO2 70 mm Hg (41-51); WHITE BLOOD COUNT 11.9 K/uL (4.1-10.2)
[2017-07-31 03:56] LABS: ALBUMIN 3.3 g/dL (3.2-4.8)
[2017-07-31 03:57] LABS: CHLORIDE 84 mEq/L (99-109); POTASSIUM 3.4 mEq/L (3.7-5.4); SODIUM 134 mEq/L (136-147)
[2017-07-31 03:59] LABS: GLUCOSE 359 mg/dL (70-99); TOTAL PROTEIN 7.9 g/dL (6.4-8.3)
[2017-07-31 04:01] LABS: TOTAL BILIRUBIN 0.5 mg/dL (0.0-1.0)
[2017-07-31 04:02] LABS: ALKALINE PHOSPHATASE 122 IU/L (3-129)
[2017-07-31 04:03] LABS: CREATININE 0.8 mg/dL (0.6-1.3); GFR ESTIMATE (CALCULATED) > 59 mL/min/
[2017-07-31 04:04] LABS: AST (GOT) 13 IU/L (2-34); UREA NITROGEN (BUN) 13 mg/dL (9-23)
[2017-07-31 04:05] LABS: ALT (GPT) 10 IU/L (3-49)
[2017-07-31 04:06] LABS: LIPASE 9 U/L (1.0-51.0)
[2017-07-31] MEDS ORDERED: CLINDAMYCIN HC150 MG PO (05:55)
[2017-07-31] MEDS ORDERED: CLEOCIN300 MG PO (05:55)
[2017-07-31] MEDS ORDERED: KEFLEX500 MG PO (05:55)
[2017-07-31 06:45] VITALS: BP 122/74
== END 2017-07-31 06:46 | disposition home or self-care (01) ==
LOC: EME 23:06
PROVIDERS: Emergency Medicine
DX: L03.311 Cellulitis of abdominal wall (principal); I11.0 Hypertensive heart disease with heart failure; I50.9 Heart failure, unspecified; E11.9 Type 2 diabetes mellitus without complications; K21.9 Gastro-esophageal reflux disease without esophagitis; M79.7 Fibromyalgia; F41.9 Anxiety disorder, unspecified; F32.9 Major depressive disorder, single episode, unspecified; Z79.82 Long term (current) use of aspirin; Z79.4 Long term (current) use of insulin; Z79.891 Long term (current) use of opiate analgesic; Z87.891 Personal history of nicotine dependence; Z86.14 Personal history of Methicillin resistant Staphylococcus aureus infection; Z98.890 Other specified postprocedural states; Z86.19 Personal history of other infectious and parasitic diseases; Z90.49 Acquired absence of other specified parts of digestive tract; Z91.040 Latex allergy status; Z91.018 Allergy to other foods; Z88.0 Allergy status to penicillin; Z91.048 Other nonmedicinal substance allergy status; Z88.8 Allergy status to other drugs, medicaments and biological substances
CPT/HCPCS: 80053; 81003; 82803; 83605; 83690; 85025; 87040